=== PATIENT | male | born 1975 | race Caucasian/White ===

== ENCOUNTER → 2023-06-09 | Outpatient (CLI) | payer BC ==
--- NOTE | 2023-06-27 12:42 | P.CEMON ---
[14] DAY EVENT MONITOR REPORT: INDICATION: Palpitations, R00.2. START DATE: 06/11/23 END DATE: 06/19/23 Patient wore the monitor for 10 days FINDINGS: Overall [good] quality study. Patient's baseline rhythm was [normal sinus rhythm]. Baseline heart rate was 88 beats per minute. There were no observed atrial fibrillation, atrial flutter or sustained ventricular rhythm. There were no observed sinus pauses which were more than 2 second long. Patient symptoms correlation: Patient triggered events corresponded to normal sinus rhythm and sinus tachycardia with heart rate 104 bpm at 7:50 AM. Conclusion Overall nonrevealing 14-day event monitor Thank you for letting [facility] cardiology team to get involved in this patient's care. Please feel free to contact our office in case of any specific questions. Justo Mota MD, RPVI Cardiovascular Disease
== END | disposition home or self-care (01) ==
LOC: RADECHMAIN 07:49
PROVIDERS: ATTEND Family Medicine
DX: R00.2 Palpitations (principal)
CPT/HCPCS: 93270